=== PATIENT | male | born 1955 | race Caucasian/White ===

== ENCOUNTER 2024-05-21 16:40 | Emergency (ER) | payer OTHER, SELFPAY ==
[2024-05-21 16:45] VITALS: BP 155/100
--- NOTE | 2024-05-21 17:36 | ED.GENMED ---
History of Present Illness
General
Chief Complaint: Eye Problems
Source: patient
Exam Limitations: none
Time Seen by Provider: 05/21/24 17:26
History of Present Illness
History of Present Illness:
Patient felt a foreign body sensation under his left eye while in the shower yesterday. Went to urgent care. Started on antibiotic ointment. However he still has a foreign body sensation and came to the ER. No contacts. No true visual issues
just watering and blurring from this
Review of Systems
Review of Systems
All Other Systems: Not applicable
Phy Exam
Physical Exam
Physical Exam:
General: Nontoxic appearing in no distress
Skin: Warm and dry, no rash
Neuro: Alert, nontoxic, grossly nonfocal
Psychiatric: Good eye contact and appropriate
Eye: Moderate conjunct injection. Cornea grossly clear. No hyphema. No obvious abrasion grossly. Eyelid everted with a small sesame seed like foreign body removed. Fluorescein positive at 3:00 with a slightly circular area. Almost appears like
an early ulcer. Possibly pressure related from the foreign body. No dendrites.
Course
Vital Signs
Initial and Last Documented VS:
Initial Vital Signs
Temp Pulse Resp BP Pulse Ox
97.9 F 86 16 155/100 98
05/21/24 16:45 05/21/24 16:45 05/21/24 16:45 05/21/24 16:45 05/21/24 16:45
Last Documented Vital Signs
Temp Pulse Resp BP Pulse Ox
97.9 F 86 16 155/100 98
05/21/24 16:45 05/21/24 16:45 05/21/24 16:45 05/21/24 16:45 05/21/24 16:45
*Critical Care Note
Total Time (30-74mins, 75-104mins- exclusive of procedures): Not Applicable
Comment
Comment:
Patient does not use contacts. Would be unlikely that this is a true ulceration and is likely related to the clear foreign body it was under the eyelid. He will continue TobraDex ointment and follow-up with ophthalmology
ED Attending Note
-
Portions of this chart may have been created with voice recognition software.� Occasional wrong word or��sound alike� substitutions may have occurred due to the inherent limitations of voice recognition software.
Discharge Plan
Departure
Patient Disposition: Home (Routine Discharge)
Date of Disposition: 05/21/24
Time of Disposition: 17:37
Patient with high blood pressure during this ER visit?: Yes
Discharge Problem:
Eyelid foreign body, Corneal abrasion
Instructions: Corneal Abrasion (DC), Foreign Body in Eye (DC), BLOOD PRESSURE
Prescriptions:
No Action
No Meds
Activity Restrictions/Additional Instructions:
Continue your eye ointment every 3 hours
Call your violent crimes detective Thursday morning for close follow-up
Interventions
Interventions:
*Risk Screen - Suicide Last Done: 05/21/24 17:47
*General Assessment Last Done: 05/21/24 16:45
*Neglect/Abuse Screening Last Done: 05/21/24 17:47
ED- Fall Risk Assessment Last Done: 05/21/24 17:47
*ED COVID-19 Vaccine History Last Done: 05/21/24 16:45
*Nursing Disposition Last Done: 05/21/24 17:47
Discharge Date and Time
Discharge Date/Time: 05/21/24 17:48
Print Language: [place]
== END 2024-05-21 17:48 | disposition home or self-care (01) ==
LOC: EMR 16:40
PROVIDERS: EMERGENCY PHYSICIAN Emergency Medicine
DX: T15.02XA Foreign body in cornea, left eye, initial encounter (principal); S00.252A Superficial foreign body of left eyelid and periocular area, initial encounter; W44.9XXA Unspecified foreign body entering into or through a natural orifice, initial encounter; R03.0 Elevated blood-pressure reading, without diagnosis of hypertension
CPT/HCPCS: 99282

== ENCOUNTER 2025-02-09 06:15 | Day surgery (SDC) | payer MEDICARE, SELFPAY | END 2025-02-09 12:40 | disposition home or self-care (01) | LOC: GI 06:15 | PROVIDERS: ATTENDING PHYSICIAN Internal Medicine | DX: Z12.11 Encounter for screening for malignant neoplasm of colon (principal); K57.30 Diverticulosis of large intestine without perforation or abscess without bleeding; D12.0 Benign neoplasm of cecum; D12.5 Benign neoplasm of sigmoid colon; Z86.0100 Personal history of colon polyps, unspecified | CPT/HCPCS: 45385; 45380; 88305 ==